=== PATIENT | female | born 1995 | race African-American/Black ===

== ENCOUNTER 2016-11-16 08:43 | Emergency (ER) | payer MEDICAID ==
[2016-11-16 08:58] VITALS: BP 124/70
[2016-11-16] MEDS ORDERED: IBUPROFEN 600 MG TABLET PO ONE (09:08)
--- NOTE | 2016-11-16 09:37 | RADIOLOGY REPORT (SQ) ---
EXAM DESCRIPTION: FOOT LEFT COMPLETE COMPLETED DATE/TIME: 11/16/2016 9:22 am REASON FOR STUDY: foot injury COMPARISON: None. NUMBER OF VIEWS: Three views. TECHNIQUE: AP, lateral and oblique radiographic images acquired of the left foot. LIMITATIONS: None. FINDINGS: MINERALIZATION: Normal. BONES: No acute fracture or dislocation. No worrisome bone lesions. JOINTS: No effusions. SOFT TISSUES: No soft tissue swelling. No foreign body. OTHER: No other significant finding. IMPRESSION: NEGATIVE STUDY OF THE LEFT FOOT. NO RADIOGRAPHIC EVIDENCE OF ACUTE INJURY. TECHNICAL DOCUMENTATION: JOB ID: [id number] [employer]- All Rights Reserved
--- NOTE | 2016-11-16 09:45 | ER Document Report ---
ED General - General Chief Complaint: Foot Pain Stated Complaint: FALL/LEFT FOOT PAIN Time Seen by Provider: 11/16/16 09:08 Mode of Arrival: Wheelchair Information source: Patient Notes: 21-year-old female presents with complaints of left foot pain since yesterday. Patient fell off a however board landed on her foot. She states she has not been able to ambulate since TRAVEL OUTSIDE OF THE [place] IN LAST 30 DAYS: No - HPI Onset: Yesterday Onset/Duration: Sudden Quality of pain: Achy Severity: Mild Pain Level: 1 Associated symptoms: Body/muscle aches Exacerbated by: Movement, Walking Relieved by: Denies Similar symptoms previously: No Recently seen / treated by doctor: No - Related Data Allergies/Adverse Reactions: No Known Allergies Allergy (Verified 11/16/16 08:58) Past Medical History - Social History Smoking Status: Current Every Day Smoker Cigarette use (# per day): Yes Chew tobacco use (# tins/day): No Smoking Education Provided: No Frequency of alcohol use: None Drug Abuse: None Family History: Reviewed & Not Pertinent Renal/ Medical History: Denies: Hx Peritoneal Dialysis Surgical Hx: Negative Review of Systems - Review of Systems Notes: REVIEW OF SYSTEMS: CONSTITUTIONAL : Denies fever, chills, or sweats. Denies recent illness. EENT: Denies eye, ear, throat, or mouth pain or symptoms. Denies nasal or sinus congestion or discharge. Denies throat, tongue, or mouth swelling or difficulty swallowing. CARDIOVASCULAR: Denies chest pain. Denies palpitations or racing or irregular heart beat. Denies ankle edema. RESPIRATORY: Denies cough, cold, or chest congestion. Denies shortness of breath, difficulty breathing, or wheezing. GASTROINTESTINAL: Denies abdominal pain or distention. Denies nausea, vomiting , or diarrhea. Denies blood in vomitus, stools, or per rectum. Denies black, tarry stools. Denies constipation. GENITOURINARY: Denies difficulty urinating, painful urination, burning, frequency, blood in urine, or discharge. FEMALE GENITOURINARY: Denies vaginal bleeding, heavy or abnormal periods, irregular periods. Denies vaginal discharge or odor. MUSCULOSKELETAL: Admits foot pain SKIN: Denies rash, lesions or sores. HEMATOLOGIC : Denies easy bruising or bleeding. LYMPHATIC: Denies swollen, enlarged glands. NEUROLOGICAL: Denies confusion or altered mental status. Denies passing out or loss of consciousness. Denies dizziness or lightheadedness. Denies headache. Denies weakness or paralysis or loss of use of either side. Denies problems with gait or speech. Denies sensory loss, numbness, or tingling. Denies seizures. PSYCHIATRIC: Denies anxiety or stress. Denies depression, suicidal ideation, or homicidal ideation. ALL OTHER SYSTEMS REVIEWED AND NEGATIVE. PHYSICAL EXAMINATION: GENERAL: Well-appearing, well-nourished and in no acute distress. HEAD: Atraumatic, normocephalic. EYES: Pupils equal round and reactive to light, extraocular movements intact, conjunctiva are normal. ENT: Nares patent, oropharynx clear without exudates. Moist mucous membranes. NECK: Normal range of motion, supple without lymphadenopathy LUNGS: Breath sounds clear to auscultation bilaterally and equal. No wheezes rales or rhonchi. HEART: Regular rate and rhythm without murmurs ABDOMEN: Soft, nontender, nondistended abdomen. No guarding, no rebound. No masses appreciated. Female : deferred Musculoskeletal: Foot pain on left midfoot no deformity no bruising NEUROLOGICAL: Cranial nerves grossly intact. Normal speech, normal gait. Normal sensory, motor exams PSYCH: Normal mood, normal affect. SKIN: Warm, Dry, normal turgor, no rashes or lesions noted. Dictation was performed using [employer] voice recognition software Physical Exam - Vital signs Vitals: Temp Pulse Resp BP Pulse Ox 98.1 F 69 18 124/70 100 11/16/16 08:56 11/16/16 08:56 11/16/16 08:56 11/16/16 08:56 11/16/16 08:56 Course - Re-evaluation Re-evalutation: 11/16/16 15:46 X-ray reviewed by myself and radiology note no significant abnormality, patient will be given crutches anti-inflammatories and follow-up with orthopedics is otherwise well-appearing stable no distress After performing a Medical Screening Examination, I estimate there is LOW risk for INTRACRANIAL HEMORRHAGE, UNSTABLE SPINE FRACTURE, CENTRAL CORD SYNDROME, CAUDA EQUINA, THORACIC AORTIC DISSECTION, PNEUMOTHORAX, PERFORATED BOWEL, RUPTURED ABDOMINAL AORTIC ANEURYSM, ACUTE TENDON RUPTURE, COMPARTMENT SYNDROME, or OPEN FRACTURE, thus I consider the discharge disposition reasonable. Also, there is no evidence or peritonitis, sepsis, or toxicity. I have reevaluated this patient multiple times and no significant life threatening changes are noted. The patient and I have discussed the diagnosis and risks, and we agree with discharging home to follow-up with their primary doctor with the understanding that symptoms and presentations can change. We also discussed returning to the Emergency Department immediately if new or worsening symptoms occur. We have discussed the symptoms which are most concerning (e.g., bloody stool, fever, changing or worsening pain, vomiting) that necessitate immediate return. - Vital Signs Vital signs: Temp Pulse Resp BP Pulse Ox 98.1 F 69 18 124/70 100 11/16/16 08:56 11/16/16 08:56 11/16/16 08:56 11/16/16 08:56 11/16/16 08:56 - Diagnostic Test Radiology reviewed: Image reviewed, Reports reviewed - No acute abnormality noted Discharge - Discharge Clinical Impression: Foot pain, left Foot injury Qualifiers: Encounter type: initial encounter Laterality: left Qualified Code(s): S99.922A - Unspecified injury of left foot, initial encounter Condition: Stable Disposition: HOME, SELF-CARE Instructions: Contusion (OM) Prescriptions: Naproxen 500 mg PO Q8 #30 tablet Referrals: KENDAL JOSHUA MD [ACTIVE STAFF] - Follow up as needed
== END 2016-11-16 10:03 | disposition home or self-care (01) ==
LOC: ER 08:43
DX: S99.922A Unspecified injury of left foot, initial encounter (principal); M79.672 Pain in left foot; F17.210 Nicotine dependence, cigarettes, uncomplicated; V00.131A Fall from skateboard, initial encounter
CPT/HCPCS: 99283; 73630; J3490

== ENCOUNTER 2017-07-19 10:59 | Emergency (ER) | payer SELFPAY ==
--- NOTE | 2017-07-19 11:42 | ER Document Report ---
ED Medical Screen (RME) - General Chief Complaint: Abdominal Pain Stated Complaint: ABDOMINAL PAIN Time Seen by Provider: 07/19/17 11:36 Notes: RAPID MEDICAL EVALUATION DISCLOSURE I have seen this patient as part of a Rapid Medical Evaluation and, if applicable, placed any initially appropriate orders. The patient will be seen and fully evaluated, including a full history and physical exam, by a provider ( in Main ED or Fast Track) when a room becomes available. 22-year-old female here with complaints of left lower quadrant abdominal pain for the past 3 days. She is also had some vaginal bleeding but no discharge. Has not tried taking anything for the pain. She has an IUD but has been unable to feel the strings for quite some time. EXAM Exquisite tenderness left lower quadrant TRAVEL OUTSIDE OF THE [place] IN LAST 30 DAYS: No - Related Data Allergies/Adverse Reactions: No Known Allergies Allergy (Verified 07/19/17 11:03) Past Medical History - Social History Frequency of alcohol use: None Drug Abuse: None Renal/ Medical History: Denies: Hx Peritoneal Dialysis Physical Exam - Vital signs Vitals: Temp Pulse Resp BP Pulse Ox 98.5 F 103 H 16 112/71 100 07/19/17 11:06 07/19/17 11:06 07/19/17 11:06 07/19/17 11:06 07/19/17 11:06 Course - Vital Signs Vital signs: Temp Pulse Resp BP Pulse Ox 98.5 F 103 H 16 112/71 100 07/19/17 11:06 07/19/17 11:06 07/19/17 11:06 07/19/17 11:06 07/19/17 11:06
[2017-07-19 12:18] LABS: APPEARANCE,URINE SLIGHTLY-CLOUDY; BILIRUBIN,URINE NEGATIVE (NEGATIVE); COLOR,URINE YELLOW; GLUCOSE, URINE NEGATIVE (NEGATIVE); KETONES,URINE NEGATIVE (NEGATIVE); LEUKOCYTE ESTERASE,URINE LARGE (NEGATIVE); NITRITE,URINE NEGATIVE (NEGATIVE); PROTEIN,URINE NEGATIVE (NEGATIVE); URINE SPECIFIC GRAVITY 1.012
--- NOTE | 2017-07-19 13:02 | RADIOLOGY REPORT (SQ) ---
EXAM DESCRIPTION: U/S NON OB PEL TV W/DOPPLER COMPLETED DATE/TIME: 07/19/2017 12:48 pm REASON FOR STUDY: eval IUD torsion etc COMPARISON: None. TECHNIQUE: Dynamic and static grayscale images acquired of the pelvis via transvaginal approach and recorded on PACS. Additional selected color Doppler and spectral images recorded. LIMITATIONS: None. FINDINGS: UTERUS: Contour normal. No mass. Uterus is 8.4 x 5.3 x 4.8 cm in size ENDOMETRIAL STRIPE: No focal or generalized thickening. No masses. Endometrial stripe 2 mm in thickn ess. There is an IUD in good positioning. CERVIX: No nabothian cysts. RIGHT OVARY AND DOPPLER: Normal size, 5 x 3.5 x 2.8 cm in size. There is a well-circumscribed hypoec hoic cyst with thin septations likely a hemorrhagic cyst right ovary, 2.7 x 2.4 x 2.1 cm in size. Nor mal arterial vascular flow without evidence for torsion. LEFT OVARY AND DOPPLER: Normal size, 5 x 3.5 x 2.4 cm in size. No worrisome masses. Normal arterial v ascular flow without evidence for torsion. FREE FLUID: None noted. OTHER: No other significant finding. IMPRESSION: HEMORRHAGIC CYST RIGHT OVARY. OTHERWISE, NORMAL TRANSVAGINAL PELVIC ULTRASOUND. COMMENT: FINDINGS DISCUSSED WITH DR. SANTOS TECHNICAL DOCUMENTATION: JOB ID: [id number] [employer]- All Rights Reserved Rev-07/19 Reading location - IP/workstation name: [email or web address]
--- NOTE | 2017-07-19 13:11 | ER Document Report ---
ED GI/ - General Mode of Arrival: Ambulatory Information source: Patient TRAVEL OUTSIDE OF THE [place] IN LAST 30 DAYS: No <ANGELINA RUBIO - Last Filed: 07/19/17 14:32> <CARLITA SANTOS - Last Filed: 07/19/17 15:06> - General Chief Complaint: Abdominal Pain Stated Complaint: ABDOMINAL PAIN Time Seen by Provider: 07/19/17 11:36 Notes: Patient is a 22-year-old female that presents to the emergency department today with complaints of 3 days of left-sided abdominal pain. Patient states the pain has been pretty consistent since onset. Patient states she is not stating she is on the Jackie-Guard IUD. (ANGELINA RUBIO) - Related Data Allergies/Adverse Reactions: No Known Allergies Allergy (Verified 07/19/17 11:03) Past Medical History - General Information source: Patient - Social History Smoking Status: Current Every Day Smoker Cigarette use (# per day): Yes Frequency of alcohol use: None Drug Abuse: None Lives with: Family Family History: Reviewed & Not Pertinent Patient has suicidal ideation: No Patient has homicidal ideation: No - Medical History Medical History: Negative Renal/ Medical History: Denies: Hx Peritoneal Dialysis Surgical Hx: Negative <ANGELINA RUBIO - Last Filed: 07/19/17 14:32> Review of Systems - Review of Systems Constitutional: No symptoms reported EENT: No symptoms reported Cardiovascular: No symptoms reported Respiratory: No symptoms reported Gastrointestinal: See HPI, Abdominal pain Genitourinary: No symptoms reported Female Genitourinary: No symptoms reported Musculoskeletal: No symptoms reported Skin: No symptoms reported Hematologic/Lymphatic: No symptoms reported Neurological/Psychological: No symptoms reported -: Yes All other systems reviewed and negative <ANGELINA RUBIO - Last Filed: 07/19/17 14:32> Physical Exam <ANGELINA RUBIO - Last Filed: 07/19/17 14:32> <CARLITA SANTOS - Last Filed: 07/19/17 15:06> - Vital signs Vitals: Temp Pulse Resp BP Pulse Ox 98.5 F 103 H 16 112/71 100 07/19/17 11:06 07/19/17 11:06 07/19/17 11:06 07/19/17 11:06 07/19/17 11:06 - Notes Notes: Physical Exam: General: Alert, appears well. HEENT: Normocephalic. Atraumatic. PERRL. Extraocular movements intact. Oropharynx clear. Neck: Supple. Non-tender. Respiratory: No respiratory distress. Clear and equal breath sounds bilaterally. Cardiovascular: Regular rate and rhythm. Abdominal: Very thin appearing. Left sided abdominal tenderness with palpation, suprapubic tenderness with palpation, no RLQ tenderness with palpation. No distension. Normal Bowel Sounds. Back: Non-tender. No deformity or step off. Extremities: Moves all four extremities. Upper extremities: Normal inspection. Normal ROM. Lower extremities: Normal inspection. No edema. Normal ROM. Neurological: Normal cognition. AAOx4. Normal speech. Psychological: Normal affect. Normal Mood. Skin: Warm. Dry. Normal color. (ANGELINA RUBIO) Course - Laboratory Result Diagrams: 07/19/17 13:25 07/19/17 13:25 <ANGELINA RUBIO - Last Filed: 07/19/17 14:32> - Laboratory Result Diagrams: 07/19/17 13:25 07/19/17 13:25 - Diagnostic Test Radiology reviewed: Image reviewed - KUB shows a lot of stool in the right and transverse colon <CARLITA SANTOS - Last Filed: 07/19/17 15:06> - Vital Signs Vital signs: Temp Pulse Resp BP Pulse Ox 98.5 F 103 H 16 112/71 100 07/19/17 11:06 07/19/17 11:06 07/19/17 11:06 07/19/17 11:06 07/19/17 11:06 - Laboratory Laboratory results interpreted by me: 07/19/17 07/19/17 11:44 13:25 Hgb 8.9 L Hct 28.9 L MCV 66 L MCH 20.2 L MCHC 30.9 L RDW 20.7 H Urine Urobilinogen 4.0 H Ur Leukocyte Esterase LARGE H Discharge <ANGELINA RUBIO - Last Filed: 07/19/17 14:32> <CARLITA SANTOS - Last Filed: 07/19/17 15:06> - Discharge Clinical Impression: Hemorrhagic cyst of right ovary Urinary tract infection Qualifiers: Urinary tract infection type: site unspecified Hematuria presence: without hematuria Qualified Code(s): N39.0 - Urinary tract infection, site not specified Abdominal pain Qualifiers: Abdominal location: left lower quadrant Qualified Code(s): R10.32 - Left lower quadrant pain Condition: Stable Disposition: HOME, SELF-CARE Additional Instructions: Hemorrhagic ovarian Cyst: Your examination shows the presence of a hemorrhagic ovarian cyst. This is a ball of fluid attached to the ovary that has blood in it. Ovarian cysts in women of child-bearing age are usually innocent. However, the cyst may cause pain when it grows or bursts. An innocent ovarian cyst will usually go away by itself. A hemorrhagic cyst can rupture and become an emergency. If this happens you may notice a sudden increase in severe pain and your pelvis or abdomen. You should return to the emergency room immediately if you notice a sudden severe increase in pain. Most cysts (even the innocent ones) require follow-up examination. Call the doctor or return at any time if the pain increases significantly, if you become faint, or if you experience vaginal bleeding. Urinary Tract Infection: Your evaluation indicates that you have a urinary tract infection. This is due to germs growing in the bladder. This is a common problem. This infection usually responds quickly to antibiotics. Your antibiotic should be taken exactly as prescribed. Drink plenty of fluids -- three to four quarts a day. Occasionally, a bladder anesthetic will be prescribed to help stop the feeling of urgency until the antibiotic has a chance to clear the infection. This may cause your urine to be dark orange. Certain urine infections require a culture. If the doctor obtained a culture, the results will be back in two days. You should call to see if a change in treatment is needed. A repeat urinalysis after you finish treatment is often recommended. The physician will let you know if further testing is required. Call the doctor if you develop fever, chills, flank pain, inability to urinate, or blood in the urine. Take the medication as prescribed for the urine infection and the pain. Drink lots of fluids. Take a stool softener so you do not become constipated. Follow-up with [facility] on Saturday to recheck your cyst. RETURN TO THE EMERGENCY ROOM IF ANY NEW OR WORSENING SYMPTOMS. Prescriptions: Doxycycline Hyclate 100 mg PO BID #14 tablet Hydrocodone/Acetaminophen [Hydrocodon-Acetaminophen 5-325] 1 each PO ASDIR PRN # 15 tablet PRN Reason: Referrals: [facility] [Provider Group] - 07/22/17 (Follow-up with [facility] on Saturday--call for an appointment time.) Scribe Attestation: 07/19/17 15:04 I personally performed the services described in the documentation, reviewed and edited the documentation which was dictated to the scribe in my presence, and it accurately records my words and actions. (CARLITA SANTOS) Scribe Documentation - Scribe Written by Escobar:: Escobar Michel, 07/19/2017, 1439 acting as scribe for :: Philip <ANGELINA RUBIO - Last Filed: 07/19/17 14:32>
[2017-07-19 13:41] LABS: ABSOLUTE LYMPHOCYTES (AUTO) 1.1 10^3/uL (0.5-4.7); ABSOLUTE MONOCYTES (AUTO) 0.9 10^3/uL (0.1-1.4); ABSOLUTE NEUT (AUTO) 5.2 10^3/uL (1.7-8.2); BASOPHILS % (AUTO) 0.7 % (0-2); EOSINOPHILS % (AUTO) 0.2 % (0-6); HEMATOCRIT 28.9 % (36.0-47.0); HEMOGLOBIN 8.9 g/dL (12.0-15.5); LYMPHOCYTES % (AUTO) 15.7 % (13-45); MEAN CORPUSCULAR HEMOGLOBIN 20.2 pg (27.0-33.4); MEAN CORPUSCULAR HGB CONC 30.9 g/dL (32.0-36.0); MEAN CORPUSCULAR VOLUME 66 fl (80-97); MONOCYTES % (AUTO) 12.1 % (3-13); PLATELET COUNT 251 10^3/uL (150-450); RED BLOOD COUNT 4.41 10^6/uL (3.72-5.28); RED CELL DISTRIBUTION WIDTH 20.7 % (11.5-14.0); SEGMENTED NEUTROPHILS % (AUTO) 71.3 % (42-78); TOTAL CELLS COUNTED % (AUTO) 100 %; WHITE BLOOD COUNT 7.3 10^3/uL (4.0-10.5)
--- NOTE | 2017-07-19 14:00 | RADIOLOGY REPORT (SQ) ---
EXAM DESCRIPTION: KUB/ABDOMEN (SINGLE VIEW) COMPLETED DATE/TIME: 07/19/2017 1:48 pm REASON FOR STUDY: Left-sided abdominal pain COMPARISON: None. NUMBER OF VIEWS: One view. TECHNIQUE: Supine radiographic image of the abdomen acquired. LIMITATIONS: None. FINDINGS: BOWEL GAS PATTERN: Normal bowel gas pattern. No dilated loops. CALCIFICATIONS: No suspicious calcifications. SOFT TISSUES: No gross mass or suggestion of organomegaly. HARDWARE: IUD in the pelvis. BONES: No acute fracture. No worrisome bone lesions. OTHER: No other significant finding. IMPRESSION: NO RADIOGRAPHIC EVIDENCE FOR ACUTE ABDOMINAL DISEASE. TECHNICAL DOCUMENTATION: JOB ID: [id number] [employer]- All Rights Reserved Reading location - IP/workstation name: [email or web address]
[2017-07-19 14:04] LABS: ALANINE AMINOTRANSFERASE 27 U/L (9-52); ALBUMIN 4.1 g/dL (3.5-5.0); ALKALINE PHOSPHATASE 44 U/L (38-126); ANION GAP 14 (5-19); ASPARTATE AMINO TRANSFERASE 17 U/L (14-36); BILIRUBIN,DIRECT 0.3 mg/dL (0.0-0.4); BILIRUBIN,TOTAL 0.7 mg/dL (0.2-1.3); BLOOD UREA NITROGEN 11 mg/dL (7-20); CALCIUM 9.3 mg/dL (8.4-10.2); CARBON DIOXIDE 24 mmol/L (22-30); CHLORIDE 104 mmol/L (98-107); GLUCOSE 75 mg/dL (75-110); POTASSIUM 3.8 mmol/L (3.6-5.0); SODIUM 142.4 mmol/L (137-145); TOTAL PROTEIN 6.8 g/dL (6.3-8.2)
[2017-07-19 15:22] VITALS: BP 109/54
== END 2017-07-19 15:24 | disposition home or self-care (01) ==
LOC: ER 10:59
DX: N83.201 Unspecified ovarian cyst, right side (principal); F17.210 Nicotine dependence, cigarettes, uncomplicated; N39.0 Urinary tract infection, site not specified; R10.32 Left lower quadrant pain
CPT/HCPCS: 36415; 74018; 76830; 80053; 81001; 81025; 85025; 87086; 87088; 87186; 93976; 99284